=== PATIENT | female | born 1965 | race Caucasian/White ===

== ENCOUNTER → 2020-06-09 | Outpatient (CLI) | payer MEDICARE, OTHER | LOC: EXRD 05-16 10:30 | DX: C82.94 Follicular lymphoma, unspecified, lymph nodes of axilla and upper limb (principal); K74.60 Unspecified cirrhosis of liver; K76.0 Fatty (change of) liver, not elsewhere classified | CPT/HCPCS: 76705 ==

== ENCOUNTER → 2020-06-12 | Outpatient (CLI) | payer MEDICARE, OTHER | LOC: MAMO 05-30 13:00 | DX: Z12.31 Encounter for screening mammogram for malignant neoplasm of breast (principal); Z53.8 Procedure and treatment not carried out for other reasons ==

== ENCOUNTER → 2020-07-31 | Outpatient (CLI) | payer MEDICARE, OTHER | LOC: MAMO 09:12 | DX: Z12.31 Encounter for screening mammogram for malignant neoplasm of breast (principal); C82.94 Follicular lymphoma, unspecified, lymph nodes of axilla and upper limb | CPT/HCPCS: 77063; 77067 ==

== ENCOUNTER → 2020-11-08 | Outpatient (CLI) | payer MEDICARE | LOC: US 13:37 | DX: C82.94 Follicular lymphoma, unspecified, lymph nodes of axilla and upper limb (principal) | CPT/HCPCS: 76536 ==